=== PATIENT | male | born 1990 | race American Indian/Alaskan Native ===

== ENCOUNTER 2021-09-14 16:40 | Emergency (ER) | payer BC, OTHER ==
--- NOTE | 2021-09-14 19:38 | Event Note ---
ED Screening Note Date of service: 09/14/21 Time: 19:37 ED Screening Note: This initial assessment/diagnostic orders/clinical plan/treatment(s) is/are subject to change based on patients health status, clinical progression and re- assessment by fellow clinical providers in the ED. Further treatment and workup at subsequent clinical providers discretion. Patient/guardian urged not to elope from the ED as their condition may be serious if not clinically assessed and managed. Patient is a 31-year-old male here with complaint of shortness of breath. Also had some nasal congestion and cough. He has been vaccinated against COVID-19. Initial vitals are notable for oxygen levels greater than 95% and patient is not tachycardic. We will plan for chest x-ray to evaluate for pneumonia.
--- NOTE | 2021-09-14 19:57 | XRay Report ---
CHEST PA AND LATERAL VIEWS INDICATION: dyspnea; cough. COMPARISON: None. FINDINGS: Support devices: None. Heart: Within normal limits. Lungs/Pleura: There are mild, somewhat patchy opacities in the mid to lower lungs bilaterally. IMPRESSION: 1. Probable bilateral pneumonia. Atypical/viral etiologies could have this appearance. Signer Name: Nima Humphries MD Signed: 09/14/2021 7:53 PM Workstation Name: [id number]
--- NOTE | 2021-09-14 21:20 | Emergency Department Report ---
- General Chief Complaint: Dyspnea/Respdistress Stated Complaint: EMELI PUI?: Yes Source: patient Mode of arrival: Ambulatory Limitations: No Limitations - History of Present Illness Initial Comments: Patient is a 31-year-old male here with complaint of shortness of breath. Also had some nasal congestion and cough. He has been vaccinated against COVID-19. Initial vitals are notable for oxygen levels greater than 95% and patient is not tachycardic. We will plan for chest x-ray to evaluate for pneumonia. MD Complaint: cough, nasal congestion - Related Data Previous Rx's Medication Instructions Recorded Last Taken Type Albuterol Sulfate [Proventil Hfa] 6.7 gm IH QID PRN #1 hfa.aer.ad 09/14/21 Unkn own Rx Benzonatate [Tessalon Perles] 100 mg PO Q8HR #15 capsule 09/14/21 Unknown Rx Prednisone [predniSONE 10 mg 10 mg PO .TAPER #1 tab.ds.pk 09/14/21 Unknown Rx (6-Day Pack, 21 Tabs)] Allergies Allergy/AdvReac Type Severity Reaction Status Date / Time No Known Allergies Allergy Unverified 09/14/21 16:42 ED Review of Systems ROS: Stated complaint: EMELI Other details as noted in HPI ED Past Medical Hx - Medications Home Medications: Home Medications Medication Instructions Recorded Confirmed Last Taken Type Albuterol Sulfate [Proventil Hfa] 6.7 gm IH QID PRN #1 hfa.aer.ad 09/14/21 Unknown Rx Benzonatate [Tessalon Perles] 100 mg PO Q8HR #15 capsule 09/14/21 Unknown Rx Prednisone [predniSONE 10 mg 10 mg PO .TAPER #1 tab.ds.pk 09/14/21 Unknown Rx (6-Day Pack, 21 Tabs)] ED Physical Exam - General Limitations: No Limitations General appearance: alert, in no apparent distress - Head Head exam: Present: atraumatic, normocephalic - Eye Eye exam: Present: normal appearance - ENT ENT exam: Present: mucous membranes moist, normal external ear exam - Neck Neck exam: Present: normal inspection, full ROM - Respiratory Respiratory exam: Present: normal lung sounds bilaterally. Absent: respiratory distress, accessory muscle use - Cardiovascular Cardiovascular Exam: Present: regular rate, normal rhythm. Absent: systolic murmur, diastolic murmur, rubs, gallop - GI/Abdominal GI/Abdominal exam: Present: soft, normal bowel sounds - Rectal Rectal exam: Present: deferred - Extremities Exam Extremities exam: Present: normal inspection - Back Exam Back exam: Present: normal inspection - Neurological Exam Neurological exam: Present: alert, oriented X3, normal gait - Psychiatric Psychiatric exam: Present: normal affect, normal mood - Skin Skin exam: Present: warm, dry, intact, normal color. Absent: rash ED Course Vital Signs 09/14/21 16:44 Temperature 98.3 F Pulse Rate 81 Respiratory 18 Rate Blood Pressure 154/91 [Right] O2 Sat by Pulse 98 Oximetry ED Medical Decision Making - Lab Data Result diagrams: 09/14/21 21:29 09/14/21 21:29 - Radiology Data Radiology results: report reviewed [address] [address] XRay Report Signed Patient: LISA INFANTE MR#: [id number] : 1990 Acct:[id number] Age/Sex: 31 / M ADM Date: 09/14/21 Loc: ED Attending Dr: Ordering Physician: HIPOLITO TIDWELL MD Date of Service: 09/14/21 Procedure(s): XR chest routine 2V Accession Number(s): [id number] cc: HIPOLITO TIDWELL MD Fluoro Time In Minutes: CHEST PA AND LATERAL VIEWS INDICATION: dyspnea; cough. COMPARISON: None. FINDINGS: Support devices: None. Heart: Within normal limits. Lungs/Pleura: There are mild, somewhat patchy opacities in the mid to lower lungs bilaterally. IMPRESSION: 1. Probable bilateral pneumonia. Atypical/viral etiologies could have this appearance. Signer Name: Nima Humphries MD Signed: 09/14/2021 7:53 PM Workstation Name: [id number] Transcribed By: JOSE M Dictated By: Nima Humphries MD Electronically Authenticated By: Nima Humphries MD Signed Date/Time: 09/14/211952 DD/ 52 TD/TT: Print Cancel Critical care attestation.: If time is entered above; I have spent that time in minutes in the direct care of this critically ill patient, excluding procedure time. ED Disposition Clinical Impression: Suspected COVID-19 virus infection Disposition: 01 HOME / SELF CARE / HOMELESS Is pt being admited?: No Does the pt Need Aspirin: No Condition: Stable Instructions: COVID-19 Frequently Asked Questions, Prevent the Spread of COVID- 19 if You Are Sick - CDC, COVID-19: How to Protect Yourself and Others - CDC Additional Instructions: Your symptoms appear most consistent with a nonspecific viral syndrome. However, given this current pandemic, COVID-19 is in the differential of possibilities. I do recommend repeat outpatient Covid 19 testing. In the meantime, isolate/quarantine yourself and stay away from anyone who is elderly, immunocompromised or chronically ill. You can use ibuprofen every 6-8 hours and Tylenol every 4-8 hours, using the dosing on the back of the bottle, as needed for any fever or body aches. Return to the emergency department with any worsening of your symptoms, development of chest pain or shortness of breath, or with any acute distress. Prescriptions: Prednisone [predniSONE 10 mg (6-Day Pack, 21 Tabs)] 10 mg PO .TAPER #1 tab.ds.pk Albuterol Sulfate [Proventil Hfa] 6.7 gm IH QID PRN #1 hfa.aer.ad PRN Reason: Shortness Of Breath Benzonatate [Tessalon Perles] 100 mg PO Q8HR #15 capsule Referrals: PRIMARY CAREMD [Primary Care Provider] - 3-5 Days MARJORIE ALCANTAR MD [Staff Physician] - 3-5 Days Forms: Work/School Release Form(ED) Time of Disposition: 23:58
[2021-09-14 22:05] LABS: Basophils # (Auto) 0.1 K/mm3 (0.0-0.1); Eosinophils % (Auto) 0.5 % (0.0-4.3); Hematocrit 47.2 % (35.5-45.6); Hemoglobin 15.2 gm/dl (11.8-15.2); Lymphocytes # (Auto) 1.5 K/mm3 (1.2-5.4); Lymphocytes % (Auto) 27.6 % (13.4-35.0); Mean Corpuscular HGB Conc 32 % (32-34); Mean Corpuscular Volume 89 fl (84-94); Monocytes # (Auto) 0.6 K/mm3 (0.0-0.8); Monocytes % (Auto) 11.5 % (0.0-7.3); Platelet Count 263 K/mm3 (140-440); Red Blood Count 5.28 M/mm3 (3.65-5.03); Red Cell Distribution Width 12.6 % (13.2-15.2)
[2021-09-14 22:39] LABS: Alanine Aminotransferase 52 units/L (7-56); Albumin 3.9 g/dL (3.9-5); BUN/Creatinine Ratio 9; Blood Urea Nitrogen 7 mg/dL (9-20); Calcium 8.5 mg/dL (8.4-10.2); Hemolysis Index 20
[2021-09-15 00:38] VITALS: BP 142/70
== END 2021-09-15 00:06 | disposition home or self-care (01) ==
LOC: ED 16:40
DX: Z20.822 Contact with and (suspected) exposure to COVID-19 (principal)
CPT/HCPCS: 36415; 71046; 80053; 85025; 99283

== ENCOUNTER 2021-09-21 05:24 | Emergency (ER) | payer BC, OTHER ==
[2021-09-21] MEDS ORDERED: LIDOCAINE-MPF (1%) 10 MG/1 ML VIAL 5 ML INFILTRATI ONE (08:29)
--- NOTE | 2021-09-21 08:34 | Emergency Department Report ---
ED Male HPI - General Chief complaint: Urogenital-Male Stated complaint: PENILE DISCHARGE Time Seen by Provider: 09/21/21 08:22 Source: patient Mode of arrival: Ambulatory Limitations: No Limitations - History of Present Illness Initial comments: 31-year-old -[place] male presents to the emergency room complaining of penile discharge he noticed this morning. Patient denies any testicular pain or testicular swelling. He does admit to unprotected intercourse a few days ago. Patient states he is going to the [place] to have his labs done. He denies any abdominal pain no fever no chills no nausea no vomiting. He denies any past medical history currently takes no meds and has no known drug allergies. MD Complaint: penile discharge -: This morning Location: penis Radiation: none Severity: mild Improves with: none Worsens with: none new sexual partner discharge - Related Data Sexually active: Yes Previous Rx's Medication Instructions Recorded Last Taken Type Albuterol Sulfate [Proventil Hfa] 6.7 gm IH QID PRN #1 hfa.aer.ad 09/14/21 Unknown Rx Benzonatate [Tessalon Perles] 100 mg PO Q8HR #15 capsule 09/14/21 Unknown Rx Prednisone [predniSONE 10 mg 10 mg PO .TAPER #1 tab.ds.pk 09/14/21 Unknown Rx (6-Day Pack, 21 Tabs)] Doxycycline Hyclate [Doxycycline 100 mg PO Q12HR 7 Days #14 tab 09/21/21 Unknown Rx Hyclate TAB] Allergies Allergy/AdvReac Type Severity Reaction Status Date / Time No Known Allergies Allergy Unverified 09/14/21 16:42 ED Review of Systems ROS: Stated complaint: PENILE DISCHARGE Other details as noted in HPI Comment: All other systems reviewed and negative ED Past Medical Hx - Past Medical History Previous Medical History?: No - Surgical History Past Surgical History?: No - Medications Home Medications: Home Medications Medication Instructions Recorded Confirmed Last Taken Type Albuterol Sulfate [Proventil Hfa] 6.7 gm IH QID PRN #1 hfa.aer.ad 09/14/21 Unknown Rx Benzonatate [Tessalon Perles] 100 mg PO Q8HR #15 capsule 09/14/21 Unknown Rx Prednisone [predniSONE 10 mg 10 mg PO .TAPER #1 tab.ds.pk 09/14/21 Unknown Rx (6-Day Pack, 21 Tabs)] Doxycycline Hyclate [Doxycycline 100 mg PO Q12HR 7 Days #14 tab 09/21/21 Unknown Rx Hyclate TAB] ED Physical Exam - General Limitations: No Limitations General appearance: alert, in no apparent distress - Head Head exam: Present: atraumatic, normocephalic - Eye Eye exam: Present: normal appearance - ENT ENT exam: Present: mucous membranes moist - Neck Neck exam: Present: normal inspection - Respiratory Respiratory exam: Present: normal lung sounds bilaterally. Absent: respiratory distress - Cardiovascular Cardiovascular Exam: Present: regular rate, normal rhythm. Absent: systolic murmur, diastolic murmur, rubs, gallop - GI/Abdominal GI/Abdominal exam: Present: soft, normal bowel sounds - Rectal Rectal exam: Present: deferred - Extremities Exam Extremities exam: Present: normal inspection - Back Exam Back exam: Present: normal inspection - Neurological Exam Neurological exam: Present: alert, oriented X3 - Psychiatric Psychiatric exam: Present: normal affect, normal mood - Skin Skin exam: Present: warm, dry, intact, normal color. Absent: rash ED Course Vital Signs 09/21/21 05:27 Temperature 97.4 F L Pulse Rate 79 Respiratory 18 Rate Blood Pressure 137/81 [Right] O2 Sat by Pulse 100 Oximetry ED Medical Decision Making - Medical Decision Making 31-year-old -[place] male presents to the emergency room complaining of penile discharge he noticed this morning. Patient denies any testicular pain or testicular swelling. He does admit to unprotected intercourse a few days ago. Patient states he is going to the [place] to have his labs done. He denies any a bdominal pain no fever no chills no nausea no vomiting. He denies any past medical history currently takes no meds and has no known drug allergies. Patient be given Rocephin injection. Discharged on doxycycline. Patient encouraged to go get tested. Critical care attestation.: If time is entered above; I have spent that time in minutes in the direct care of this critically ill patient, excluding procedure time. ED Disposition Clinical Impression: Concern about STD in male without diagnosis, Penile discharge Disposition: HOME / SELF CARE / HOMELESS Is pt being admited?: No Does the pt Need Aspirin: No Condition: Stable Instructions: Urethritis, Adult, Safe Sex Additional Instructions: Complete antibiotics as prescribed. Be sure to use a condom when you are having sex. Go get tested for HIV herpes hepatitis syphilis. Prescriptions: Doxycycline Hyclate [Doxycycline Hyclate TAB] 100 mg PO Q12HR 7 Days #14 tab Referrals: PRIMARY CARE, [Primary Care Provider] - 3-5 Days [facility]Outside] - 3-5 Days Time of Disposition: 08:33
[2021-09-21 08:44] VITALS: BP 130/80
== END 2021-09-21 08:44 | disposition home or self-care (01) ==
LOC: ED 05:24
DX: A64 Unspecified sexually transmitted disease (principal); R36.9 Urethral discharge, unspecified
CPT/HCPCS: 96372; 99282; J0696; J3490